=== PATIENT | male | born 2005 | race Caucasian/White ===

== ENCOUNTER 2024-02-01 23:14 | Emergency (ER) | payer SELFPAY ==
[~2024-02-01] VITALS: Ht 185.4 cm; Wt 117.9 kg
[~2024-02-01 23:14] MED LIST: ZITHROMAX Z PA250 MG PO
[2024-02-01] MEDS ORDERED: PENICILLIN V POTASSIUM 500 MG TAB PO ONE (23:25)
[2024-02-01] MEDS ORDERED: Ondansetron Hydrochloride 4 MG TAB SL ONE (23:30)
[2024-02-01] MEDS ORDERED: Acetaminophen/Hydrocodone 5 MG/325 MG TABLET PO ONE (23:30)
[2024-02-01] MEDS ORDERED: PENICILLIN VK500 MG PO (23:33)
== END 2024-02-01 23:51 | disposition home or self-care (01) ==
LOC: ED 23:14
DX: K04.7 Periapical abscess without sinus (principal); K02.9 Dental caries, unspecified